=== PATIENT | male | born 1995 | race Asian ===

== ENCOUNTER 2021-06-23 11:38 | Emergency (ER) | payer OTHER ==
[~2021-06-23] VITALS: Ht 190.5 cm; Wt 88.6 kg
--- NOTE | 2021-06-23 12:14 | REP ---
INDICATION: LEFT GREAT TOE INJURY. COMPARISON: None. TECHNIQUE: Four views FINDINGS: The joint spaces are symmetric and relatively well maintained. There is no evidence of acute fracture or destructive osseous lesion. Seen on one view only there is a tiny radiodensity just medial to the base of the distal phalanx. This is probably an artifact. IMPRESSION: Negative. <Electronically signed by Iraj Velázquez > 06/23/21 1551
[2021-06-23] MEDS ORDERED: IBUP80TA PO (14:00)
[2021-06-23 14:14] VITALS: BP 115/75
== END 2021-06-23 14:27 | disposition home or self-care (01) ==
LOC: M ED 11:38
DX: S90.212A Contusion of left great toe with damage to nail, initial encounter (principal); W22.8XXA Striking against or struck by other objects, initial encounter; Y92.89 Other specified places as the place of occurrence of the external cause; F17.210 Nicotine dependence, cigarettes, uncomplicated